=== PATIENT | female | born 1980 | race African-American/Black ===

== ENCOUNTER 2023-10-22 04:01 | Emergency (ER) | payer MEDICAID, OTHER ==
[~2023-10-22] VITALS: Ht 154.9 cm; Wt 93.0 kg
[~2023-10-22 04:01] MED LIST: HYDR12.54 PO; LABE300T36 PO; LISI10TA26 PO
[2023-10-22 04:08] VITALS: O2SAT 99
[2023-10-22 04:48] LABS: CARBON DIOXIDE 26 mEq/L (21-32); CHLORIDE 105 mEq/L (98-107); POTASSIUM 3.6 mEq/L (3.5-5.1); SODIUM 139 mEq/L (136-145)
[2023-10-22 04:49] LABS: BASOPHILS % 0.2 % (0.0-2.0); CALCIUM 8.9 mg/dL (8.7-10.4); EOSINOPHILS % 0.7 % (0.0-5.0); HEMATOCRIT. 27.5 % (36.0-48.0); HEMOGLOBIN. 8.1 g/dL (12.0-16.0); LYMPHOCYTES % 20.5 % (20.0-50.0); MEAN CORPUSCULAR HEMOGLOBIN 17.4 pg (28.0-32.0); MEAN CORPUSCULAR HGB CONC 29.6 g/dL (31.0-37.0); MEAN CORPUSCULAR VOLUME 58.7 fL (81.0-99.0); MEAN PLATELET VOLUME 8.9 fl (7.4-10.4); MONOCYTES % 9.2 % (2.0-8.0); NEUTROPHILS % 69.4 % (40.0-76.0); PLATELET 470 x1000/uL (130-400); RED BLOOD CELL COUNT 4.68 mill/uL (4.2-5.4); RED CELL DISTRIBUTION WIDTH 19.4 % (11.6-14.6)
[2023-10-22 04:51] LABS: ADD RBC MORPHOLOGY YES; DIFFERENTIAL COMMENT 1
[2023-10-22 04:53] LABS: CREATININE 0.9 mg/dL (0.6-1.0); GLUCOSE 124 mg/dL (70-105)
[2023-10-22 04:54] LABS: UREA NITROGEN BLOOD 9 mg/dL (9-23)
[2023-10-22] MEDS ORDERED: MECL-299 MT (09:10)
[2023-10-22 09:44] VITALS: BP 152/91; PULSE 88; RESP 20; TEMP 36.78072; O2SAT 100
[2023-10-22 14:33] LABS: ANISOCYTOSIS 2+; PLATELET ESTIMATE INCREASED
[2023-10-22 14:34] LABS: HYPOCHROMASIA 2+; MICROCYTOSIS 4+
== END 2023-10-22 09:45 | disposition home or self-care (01) ==
LOC: ER 04:01
DX: H81.10 Benign paroxysmal vertigo, unspecified ear (principal); I10 Essential (primary) hypertension; Z88.6 Allergy status to analgesic agent
CPT/HCPCS: 36415; 80048; 85025; 99283